=== PATIENT | female | born 1950 | race Caucasian/White ===

== ENCOUNTER 2016-10-14 10:32 | Emergency (ER) | payer MEDICARE, OTHER ==
[~2016-10-14] VITALS: Ht 142.2 cm; Wt 55.0 kg
[2016-10-14 10:34] VITALS: BP 167/74; PULSE 75; RESP 12; TEMP 97.6; O2SAT 99
--- NOTE | 2016-10-14 11:19 | PD ---
HPI Chief Complaint: Respiratory Symptoms Time Seen by Provider: 11:18 Travel History International Travel<30 days: No Contact w/Intl Traveler<30days: No Traveled to known affect area: No History of Present Illness HPI 66 year old female presents to the emergency department for evaluation of anxiety and HTN. Patient reports history of anxiety for many years. She states she is currently on venlafaxine for anxiety. However, she states that her anxiety symptoms have been worsening. She states she had 2 episodes of anxiety yesterday. She states that she feels a strange feeling, from her abdomen as chest tightness and headache with her anxiety. She states that she sits down and breathes heavy which will resolve her symptoms. She states she had one episode around 5 PM yesterday and then another episode during the night. She states these are consistent with her typical anxiety symptoms. Patient states that however, she checked her blood pressure and it was elevated with 149 systolic. She states her blood pressure this morning was 143/75. Patient denies any chest pain or shortness of breath. She states she has a mild headache. She states she has a history of headaches and this is mild compared to previous headaches. Patient states that she is concerned because she was told she has a history of cardiomegaly. She denies any history of CHF. Patient has history of hypothyroidism, hypertension, hyperlipidemia, arthritis , depression, anxiety, diabetes. Patient also reports a chronic cough, that is worse at night. She states she has had this cough for 2 years and has discussed it with her primary care physician. Patient denies any other complaints at this time. Patient appears well. PFSH Past Medical History Cardiovascular Problems: Yes (CARIDOMEGALY, HTN, [place] ) Diabetes: Yes (TYPE 2 ) Respiratory: Yes Social History Alcohol Use: No Tobacco Use: No Substance Use: No Allergies-Medications (Allergen,Severity, Reaction): Coded Allergies: Morphine (Verified Allergy, Unknown, 10/14/16) Penicillin (Verified Allergy, Unknown, 10/14/16) Review of Systems Except as stated in HPI: all other systems reviewed are Neg Physical Exam Narrative GENERAL: Well-developed well-nourished female patient, ambulatory. Afebrile. Vital signs stable. SKIN: Warm and dry. HEAD: Normocephalic. Atraumatic. EYES: No scleral icterus. No injection or drainage. NECK: Supple, trachea midline. No JVD or lymphadenopathy. CARDIOVASCULAR: Regular rate and rhythm without murmurs, gallops, or rubs. RESPIRATORY: Breath sounds equal bilaterally. No accessory muscle use. Lungs sounds are clear to auscultation. Dry cough noted. GASTROINTESTINAL: Abdomen soft, non-tender, nondistended. MUSCULOSKELETAL: No cyanosis, or edema. BACK: Nontender without obvious deformity. No CVA tenderness. Data Data Last Documented VS Vital Signs Date Time Temp Pulse Resp B/P Pulse Ox O2 Delivery O2 Flow Rate FiO2 10/14/16 11:44 18 Room Air 10/14/16 10:34 97.6 75 167/74 99 Orders Electrocardiogram (10/14/16 ) Basic Metabolic Panel (Bmp) (10/14/16 11:51) B-Type Natriuretic Peptide (10/14/16 11:51) Ckmb (Isoenzyme) Profile (10/14/16 11:51) Complete Blood Count With Diff (10/14/16 11:51) Magnesium (Mg) (10/14/16 11:51) Troponin I (10/14/16 11:51) Chest, Single Ap (10/14/16 11:51) CKMB (10/14/16 12:10) CKMB% (10/14/16 12:10) Labs Laboratory Tests Test 10/14/16 12:10 White Blood Count 4.7 TH/MM3 Red Blood Count 4.49 MIL/MM3 Hemoglobin 13.5 GM/DL Hematocrit 40.1 % Mean Corpuscular Volume 89.4 FL Mean Corpuscular Hemoglobin 30.0 PG Mean Corpuscular Hemoglobin 33.6 % Concent Red Cell Distribution Width 13.5 % Platelet Count 212 TH/MM3 Mean Platelet Volume 8.6 FL Neutrophils (%) (Auto) 42.6 % Lymphocytes (%) (Auto) 48.2 % Monocytes (%) (Auto) 7.5 % Eosinophils (%) (Auto) 0.8 % Basophils (%) (Auto) 0.9 % Neutrophils # (Auto) 2.0 TH/MM3 Lymphocytes # (Auto) 2.2 TH/MM3 Monocytes # (Auto) 0.4 TH/MM3 Eosinophils # (Auto) 0.0 TH/MM3 Basophils # (Auto) 0.0 TH/MM3 CBC Comment DIFF FINAL Differential Comment Sodium Level 143 MEQ/L Potassium Level 4.0 MEQ/L Chloride Level 111 MEQ/L Carbon Dioxide Level 24.7 MEQ/L Anion Gap 7 MEQ/L Blood Urea Nitrogen 13 MG/DL Creatinine 0.73 MG/DL Estimat Glomerular Filtration 79 ML/MIN Rate Random Glucose 137 MG/DL Calcium Level 9.0 MG/DL Magnesium Level 1.6 MG/DL Total Creatine Kinase 103 U/L Creatine Kinase MB 1.7 NG/ML Troponin I LESS THAN 0.02 NG/ML B-Type Natriuretic Peptide 115 PG/ML MDM Medical Decision Making Medical Screen Exam Complete: Yes Emergency Medical Condition: Yes Medical Record Reviewed: Yes Interpretation(s) Last Impressions Chest X-Ray 10/14/16 1151 Signed Impressions: Service Date/Time: Friday, October 14, 2016 12:05 - CONCLUSION: No acute disease. Jorge Evangelista MD Differential Diagnosis Anxiety versus panic attacks versus hypertension Narrative Course 66-year-old female presents to the emergency department for evaluation of worsening anxiety. She does take Effexor for anxiety. She reports 2 episodes yesterday which are consistent with her chronic anxiety. She also reports a chronic cough that has been ongoing for several years. She has no pedal edema, lung sounds are clear to auscultation and patient does report ongoing symptoms for 2 years. Patient does appear well physical exam. EKG is ordered and pending. EKG shows sinus rhythm, heart rate 66, T wave inversion 1 in aVL. I do not have a previous EKG to compare this with. CBC, BMP, CK, troponin, BNP, chest x- ray are ordered. CBC is unremarkable. BMP shows no acute abnormalities. CK is 103. Troponin is less than 0.02. BNP is 115. Chest x-ray shows no acute disease. Upon further discussion with patient, she states she has an old EKG in her purse. EKG is identical to EKG completed in the emergency department. Patient is stable for discharge to follow up with her primary care physician. Patient is agreeable. Diagnosis Primary Impression: Anxiety Referrals: Primary Care Physician call for appointment Patient Instructions: Anxiety (ED), General Instructions Additional Instructions: Follow-up with your primary care physician. Return to the emergency department for any acute worsening of symptoms. Med/Other Pt SpecificInfo: No Change to Meds Disposition: 01 DISCHARGE HOME Condition: Stable Sharon Ambrosio GREGORY Oct 14, 2016 11:19
[2016-10-14 12:27] LABS: BASOPHIL % 0.9 % (0.0-2.0); EOSINOPHIL % 0.8 % (0.0-4.0); HEMATOCRIT 40.1 % (35.0-46.0); HEMO FLAGS DIFF FINAL; LYMPH % 48.2 % (9.0-44.0); LYMPHOCYTE # 2.2 TH/MM3 (1.0-4.8); MEAN CELL VOLUME 89.4 FL (80.0-100.0); MEAN CORPUSCULAR HGB CONC 33.6 % (32.0-36.0); MONO % 7.5 % (0.0-8.0); NEUT % 42.6 % (16.0-70.0); PLATELET COUNT 212 TH/MM3 (150-450); RED BLOOD COUNT 4.49 MIL/MM3 (4.00-5.30); RED CELL DISTRIBUTION WIDTH 13.5 % (11.6-17.2); WHITE BLOOD COUNT 4.7 TH/MM3 (4.0-11.0)
[2016-10-14 12:48] LABS: ANION GAP 7 MEQ/L (5-15); BICARBONATE 24.7 MEQ/L (21.0-32.0); BLOOD UREA NITROGEN 13 MG/DL (7-18); CHLORIDE 111 MEQ/L (98-107); GLOMERULAR FILTRATION RATE 79 ML/MIN (>89); MAGNESIUM 1.6 MG/DL (1.5-2.5); SODIUM (NA) 143 MEQ/L (136-145)
--- NOTE | 2016-10-14 12:48 | RADRPT ---
EXAM DATE/TIME: 10/14/2016 12:05 [facility] COMPARISON: No previous studies available for comparison. INDICATIONS : Chest pain. MEDICAL HISTORY : None. SURGICAL HISTORY : None. ENCOUNTER: Initial ACUITY: 1 day PAIN SCORE: 3/10 LOCATION: Bilateral chest FINDINGS: A single view of the chest demonstrates the lungs to be symmetrically aerated without evidence of mas s, infiltrate or effusion. The cardiomediastinal contours are unremarkable. Osseous structures are intact. CONCLUSION: No acute disease. Jorge Evangelista MD on October 14, 2016 at 12:46 Board Certified Radiologist. This report was verified electronically.
[2016-10-14 12:51] LABS: CREATINE KINASE 103 U/L (26-192)
[2016-10-14 13:03] LABS: CKMB 1.7 NG/ML (0.5-3.6)
--- NOTE | 2016-10-14 13:05 | PD ---
Data Data Last Documented VS Vital Signs Date Time Temp Pulse Resp B/P Pulse Ox O2 Delivery O2 Flow Rate FiO2 10/14/16 11:44 18 Room Air 10/14/16 10:34 97.6 75 167/74 99 Orders Electrocardiogram (10/14/16 ) Basic Metabolic Panel (Bmp) (10/14/16 11:51) B-Type Natriuretic Peptide (10/14/16 11:51) Ckmb (Isoenzyme) Profile (10/14/16 11:51) Complete Blood Count With Diff (10/14/16 11:51) Magnesium (Mg) (10/14/16 11:51) Troponin I (10/14/16 11:51) Chest, Single Ap (10/14/16 11:51) CKMB (10/14/16 12:10) CKMB% (10/14/16 12:10) Labs Laboratory Tests Test 10/14/16 12:10 White Blood Count 4.7 TH/MM3 Red Blood Count 4.49 MIL/MM3 Hemoglobin 13.5 GM/DL Hematocrit 40.1 % Mean Corpuscular Volume 89.4 FL Mean Corpuscular Hemoglobin 30.0 PG Mean Corpuscular Hemoglobin 33.6 % Concent Red Cell Distribution Width 13.5 % Platelet Count 212 TH/MM3 Mean Platelet Volume 8.6 FL Neutrophils (%) (Auto) 42.6 % Lymphocytes (%) (Auto) 48.2 % Monocytes (%) (Auto) 7.5 % Eosinophils (%) (Auto) 0.8 % Basophils (%) (Auto) 0.9 % Neutrophils # (Auto) 2.0 TH/MM3 Lymphocytes # (Auto) 2.2 TH/MM3 Monocytes # (Auto) 0.4 TH/MM3 Eosinophils # (Auto) 0.0 TH/MM3 Basophils # (Auto) 0.0 TH/MM3 CBC Comment DIFF FINAL Differential Comment Sodium Level 143 MEQ/L Potassium Level 4.0 MEQ/L Chloride Level 111 MEQ/L Carbon Dioxide Level 24.7 MEQ/L Anion Gap 7 MEQ/L Blood Urea Nitrogen 13 MG/DL Creatinine 0.73 MG/DL Estimat Glomerular Filtration 79 ML/MIN Rate Random Glucose 137 MG/DL Calcium Level 9.0 MG/DL Magnesium Level 1.6 MG/DL Total Creatine Kinase 103 U/L Troponin I LESS THAN 0.02 NG/ML B-Type Natriuretic Peptide 115 PG/ML [facility] Supervised Visit with WARREN: Yes Narrative Course I, Dr. Barba, have reviewed the [facility]ia practice practioner's documentation and am in agreement, met with the patient face to face, made the diagnosis, and the medical decision making was done by me. *My assessment and Findings: 66-year-old female with history of anxiety, hypertension here with complaint of periodic episodes of a "strange feeling" in her abdomen that radiates up into the chest with anxiety, palpitations, shortness of breath. Patient states that this feels similar to her previous anxiety attacks. She took her blood pressure at home and it was in the 140s systolic which concerned her prompting her ER visit today. She denies any persistent chest pain, history of cardiac disease other than hypertension. Regular rate and rhythm on exam, no murmurs gallops rub, clear to auscultation bilaterally. Patient admittedly still feels somewhat anxious at this time and is somewhat fidgety on exam. My strong suspicion is that her symptoms are all related to anxiety, but given her age and gender could be atypical presentation for cardiac etiology, arrhythmia, electrolyte abnormality. Twelve-lead EKG was obtained showing T-wave inversions in 1 and aVL but otherwise regular rate and rhythm without ST changes. I do not have an old EKG with which to compare and therefore blood work was obtained. CBC, BMP, CK-MB, troponin, BNP were unremarkable. Patient was reassured and encouraged to follow up with her PCP for better management of her anxiety as an outpatient. Yanet Barba MD Oct 14, 2016 13:04
--- NOTE | 2016-10-15 23:13 | EKG ---
Date Performed: 10/14/2016 Time Performed: 11:41:37 PTAGE: 66 years EKG: Sinus rhythm ST DEVIATION AND MODERATE T-WAVE ABNORMALITY, CONSIDER LATERAL ISCHEMIA ABNORMAL ECG PREVIOUS TRACING : 07/28/1995 20.28 DOCTOR: Reyes Robles Interpretating Date/Time 10/15/2016 23:07:16
== END 2016-10-14 14:09 | disposition home or self-care (01) ==
LOC: NETRI 10:32
DX: F41.9 Anxiety disorder, unspecified (principal); I10 Essential (primary) hypertension; R51 Headache; F32.9 Major depressive disorder, single episode, unspecified; E78.5 Hyperlipidemia, unspecified; E11.9 Type 2 diabetes mellitus without complications; E03.9 Hypothyroidism, unspecified; I25.2 Old myocardial infarction; R94.31 Abnormal electrocardiogram [ECG] [EKG]; I51.7 Cardiomegaly; R05 Cough
CPT/HCPCS: 71010; 80048; 82550; 82552; 83735; 83880; 84484; 85025; 93005